=== PATIENT | female | born 1980 | race Caucasian/White ===

== ENCOUNTER 2023-05-13 19:01 | Observation (INO) | payer OTHER, SELFPAY ==
[2023-05-13] VITALS (37 sets, daily range): BP systolic 70–138; BP diastolic 0–77; PULSE 50–91; RESP 6–22; TEMP 36.4–36.9; O2SAT 92–100; BMI 51.1
--- NOTE | 2023-05-13 19:12 | ECG_ITS ---
[facility] Test Date: 2023-05-13 Pat Name: ASIF COLLIER Department: Room: - Gender: Female [employer]: : 1980 Requested By: DARIAN PERERA Order Number: [id number] Reading MD: ARIADNE MINOR Measurements Intervals [place] Rate: 84 P: 61 ID: [id number] QRS: 55 QRSD: 90 T: 35 QT: 392 QTc: 433 Interpretive Statements 1100 Sinus rhythm 4068 Nonspecific Twave abnormality 9130 borderline ECG No previous ECG available for comparison Electronically Signed On 05-14-2023 18:23:29 EDT by ARIADNE MINOR
--- NOTE | 2023-05-13 19:13 | ED.GENADUL1 ---
HPI - General Adult General Chief complaint: Allergic Reaction Stated complaint: ALLERGIC REACTION Time Seen by Provider: 05/13/23 19:12 History of Present Illness HPI narrative: patient is a 42-year-old female who presents to the emergency department with concern of possible ALLERGIC reaction. Patient was diagnosed with Covid approximately ten days ago, she developed a red rash with itching but had no other significant focal medical complaints. She was seen by her PCP several days ago as she has a medullary sponge kidney, she reported she was not feeling well any urine culture showed a urinary tract infection so Keflex was called in for her. She also received a steroid shot in the PCP office several days ago for the redness and itching rash. She states she took the 1st dose of Keflex two hours ago and while driving, she developed shortness of breath, a sensation that she was tingling all over, itching and that her face may be swelling. She is not noted to have any diffuse hives, tongue swelling or throat swelling. She states she feels nauseous. She is not concerned for . She has had no objective fevers. Related Data Home Medications Medication Instructions Recorded Confirmed amlodipine 10 mg tablet 10 mg PO DAILY 05/13/23 05/13/23 ergocalciferol (vitamin D2) 1,250 50,000 unit PO DAILY 05/13/23 05/13/23 mcg (50,000 unit) capsule propranolol 20 mg tablet 20 mg PO Q12H 05/13/23 05/13/23 Allergies Allergy/AdvReac Type Severity Reaction Status Date / Time No Known Drug Allergies Allergy Verified 05/13/23 19:17 Review of Systems ROS Constitutional Denies: fever or chills Ears, nose, mouth, and throat Denies: throat pain or neck pain Cardiovascular Denies: chest pain Respiratory Reports: shortness of breath Gastrointestinal Reports: nausea and vomiting Genitourinary Denies: painful urination Musculoskeletal Denies: back pain Integumentary/Breast Reports: rash, itching and redness Neurological Denies: headache Exam Narrative Exam Narrative: Gen.: Awake, alert, in no distress Head: Normocephalic, atraumatic ENT: Moist mucous membranes; no swelling noted of the lips or tongue; no stridor Respiratory: No respiratory distress, lungs clear bilaterally; no wheezing or rhonchi Cardio: Regular rate and rhythm Gastrointestinal: Abdomen is soft, nondistended and nontender to palpation Extremities: Moves extremities equally, no injuries noted Psych: Normal mood and affect Neuro: No focal neuro deficit Skin: Warm, dry, diffuse erythematous rash of the trunk, no urticaria noted; no vesicles or crusting Constitutional Vital Signs, click to edit/add: Last Vital Signs Temp 97.6 F 05/13/23 19:05 Pulse 54 L 05/13/23 20:28 Resp 20 05/13/23 20:28 BP 108/0 L 05/13/23 20:28 Pulse Ox 98 05/13/23 20:28 O2 Del Method Room Air 05/13/23 20:28 Course Vital Signs Vital signs: Vital Signs Temperature 97.6 F 05/13/23 19:05 Pulse Rate 53 L 05/13/23 19:05 Respiratory Rate 20 05/13/23 19:05 Blood Pressure 70/48 L 05/13/23 19:05 Pulse Oximetry 97 05/13/23 19:05 Oxygen Delivery Method Room Air 05/13/23 19:05 Temperature 97.6 F 05/13/23 19:05 Pulse Rate 54 L 05/13/23 20:28 Respiratory Rate 20 05/13/23 20:28 Blood Pressure 108/0 L 05/13/23 20:28 Pulse Oximetry 98 05/13/23 20:28 Oxygen Delivery Method Room Air 05/13/23 20:28 Medical Decision Making MDM Narrative Medical decision making narrative: on arrival to the emergency department, patient was weak, assisted to the exam cart and placed on cardiac monitoring. She was noted to be hypotensive. IV was established, two lines were placed and she was given 2 L of IV fluids with improvement of blood pressure. Labs were obtained. Patient with unremarkable EKG, normal troponin and d-dimer. Her lactic acid is elevated, blood cultures were added. 2100: Urine catheter specimen and chest x-ray are pending. case turned over to attending physician at this time for reevaluation and disposition. Medical Records Medical records reviewed: Yes I reviewed the patient's medical records Lab Data Lab results reviewed: Yes I reviewed the patient's lab results Labs: Lab Results 05/13/23 Range/Units 19:15 WBC 6.3 (4.0-11.0) 10^3/uL RBC 5.36 (4.20-5.40) 10^6/uL Hgb 15.7 (12.0-16.0) g/dL Hct 49.8 H (36.0-48.0) % MCV 92.9 (81.0-99.0) fL MCH 29.3 (26.7-34.0) pg MCHC 31.5 (29.9-35.2) g/dL RDW 14.8 (11.0-15.0) % Plt Count 453 H (150-450) 10^3/uL MPV 10.7 (9.5-13.5) fL Neut % (Auto) 39.4 L (43.0-75.0) % Lymph % (Auto) 52.2 (20.5-60.0) % [place] % (Auto) 6.2 (1.7-12.0) % Eos % (Auto) 1.3 (0.9-7.0) % Baso % (Auto) 0.0 L (0.2-2.0) % Neut # (Auto) 2.5 (1.4-6.5) 10^3/uL Lymph # (Auto) 3.3 (1.2-3.8) 10^3/uL [place] # (Auto) 0.4 (0.3-0.8) 10^3/uL Eos # (Auto) 0.1 (0.0-0.7) 10^3/uL Baso # (Auto) 0.0 (0.0-0.1) 10^3/uL Abs Immat Gran (auto) 0.06 H (0.00-0.03) 10^3/uL Imm/Tot Granulo (auto) 0.9 H (0.0-0.5) % PT 10.3 (9.0-11.6) sec INR 0.97 D-Dimer 0.33 (<=0.59) mg/L FEU Sodium 136 (136-145) mmol/L Potassium 3.2 L (3.5-5.1) mmol/L Chloride 103 (98-107) mmol/L Carbon Dioxide 24.3 (21.0-32.0) mmol/L Anion Gap 11.9 BUN 10.0 (7.0-18.0) mg/dL Creatinine 0.96 (0.55-1.02) mg/dL Est GFR ( Amer) >60 (>=60) Est GFR (Non-Af Amer) >60 (>=60) BUN/Creatinine Ratio 10.4 Glucose 144 H (74-106) mg/dL Lactate 3.4 H* (0.4-2.0) mmol/L Calcium 8.6 (8.5-10.1) mg/dL Total Bilirubin 0.3 (0.2-1.0) mg/dL AST 21 (15-37) U/L ALT 28 (14-59) U/L Alkaline Phosphatase 58 (46-116) U/L Troponin I High Sens <4.0 L (4.0-51.3) pg/mL Total Protein 7.2 (6.4-8.2) g/dL Albumin 3.4 (3.4-5.0) g/dL Globulin 3.8 g/dL Albumin/Globulin Ratio 0.9 TSH 4.686 H (0.358-3.740) uIU/mL Serum HCG, Qual Negative (NEGATIVE) Imaging Data Chest x-ray: Attestation: I have reviewed the pertinent imaging results. My impression: one view chest x-ray: No acute cardiopulmonary changes, no infiltrate, normal heart size. Imaging reviewed by attending physician ECG Data Attestation: I personally reviewed and interpreted this ECG as follows: (normal sinus rhythm at a rate of eighty-[address] elevation or ectopy. EKG reviewed by attending physician) Discharge Plan Discharge Chief Complaint: Allergic Reaction Clinical Impression: Acute hypotension Patient Disposition: Admitted as Observation Time of Disposition Decision: 20:52 Condition: Fair
[2023-05-13] MEDS: 0.9 % SODIUM CHLORIDE 1,000 ML 1000 ML IV ×2 (19:24→21:44)
[2023-05-13] MEDS: FAMOTIDINE/PF 20 MG/2 ML VIAL IV (19:27)
[2023-05-13] MEDS: METHYLPREDNISOLONE SOD SUCC PF 125 MG/2 ML VIAL IVP (19:27)
[2023-05-13] MEDS: ONDANSETRON PF 4 MG/2 ML VIAL IV ×2 (19:27→21:44)
[2023-05-13] MEDS: DIPHENHYDRAMINE HCL 50 MG/ML (1ML) VIAL 25 MG IV (19:28)
[2023-05-13 19:37] LABS: Eosinophils Absolute Auto 0.1 10^3/uL (0.0-0.7); Eosinophils Percent Auto 1.3 % (0.9-7.0); Hematocrit 49.8 % (36.0-48.0); Hemoglobin 15.7 g/dL (12.0-16.0); Immature Granulocytes Abs Auto 0.06 10^3/uL (0.00-0.03); Immature Granulocytes Pct Auto 0.9 % (0.0-0.5); Lymphocytes Absolute Auto 3.3 10^3/uL (1.2-3.8); Lymphocytes Percent Auto 52.2 % (20.5-60.0); Mean Corpuscular HGB Conc 31.5 g/dL (29.9-35.2); Mean Corpuscular Hemoglobin 29.3 pg (26.7-34.0); Mean Corpuscular Volume 92.9 fL (81.0-99.0); Mean Platelet Volume 10.7 fL (9.5-13.5); Monocytes Absolute Auto 0.4 10^3/uL (0.3-0.8); Monocytes Percent Auto 6.2 % (1.7-12.0); Neutrophils Absolute Auto 2.5 10^3/uL (1.4-6.5); Neutrophils Percent Auto 39.4 % (43.0-75.0); Platelet Count 453 10^3/uL (150-450); Red Blood Count 5.36 10^6/uL (4.20-5.40); Red Cell Distribution Width 14.8 % (11.0-15.0); White Blood Count 6.3 10^3/uL (4.0-11.0)
[2023-05-13 19:49] LABS: HCG Qualitative NEGATIVE (NEGATIVE)
[2023-05-13 19:50] LABS: D Dimer 0.33 mg/L FEU (<=0.59); INR 0.97; Prothrombin Time 10.3 sec (9.0-11.6)
[2023-05-13 19:54] LABS: Alanine Aminotransferase 28 U/L (14-59); Albumin Globulin Ratio 0.9; Albumin Level 3.4 g/dL (3.4-5.0); Alkaline Phosphatase 58 U/L (46-116); Anion Gap 11.9; Aspartate Amino Transferase 21 U/L (15-37); BUN Creatinine Ratio 10.4; Bilirubin Total 0.3 mg/dL (0.2-1.0); Calcium 8.6 mg/dL (8.5-10.1); Carbon Dioxide 24.3 mmol/L (21.0-32.0); Chloride 103 mmol/L (98-107); Estimated GFR (African America >60 (>=60); Estimated GFR (Non-African Ame >60 (>=60); Globulin 3.8 g/dL; Glucose 144 mg/dL (74-106); Potassium 3.2 mmol/L (3.5-5.1); Sodium 136 mmol/L (136-145); Total Protein 7.2 g/dL (6.4-8.2)
--- NOTE | 2023-05-13 19:57 | XR_ITS ---
The [address] [address] Patient Name: ASIF COLLIER MRN: [id number] date: 1980 Sex: F Assigned Patient Location: ED.MAIN Current Patient Location: ER Accession/Order Number: [id number] Exam Date: 05/13/2023 20:48 Report Date: 05/13/2023 21:08 At the request of: BETSY MADSEN Procedure: XR chest 1V EXAMINATION: XR chest 1V HISTORY: Shortness of breath COMPARISON: None. TECHNIQUE: Portable chest FINDINGS: The lung parenchyma is free of consolidation or infiltrate. No pneumothorax or pleural effusion. The cardiac, mediastinal and hilar contours are normal. The visualized osseous structures exhibit no gross abnormality. XR/XR chest 1V IMPRESSION: No acute cardiopulmonary abnormality. Electronically authenticated by: GRETEL GUZMAN Date: 05/13/2023 21:08
[2023-05-13 20:00] LABS: Thyroid Stimulating Hormone 4.686 uIU/mL (0.358-3.740); Troponin I High Sensitivity <4.0 pg/mL (4.0-51.3)
[2023-05-13 20:05] LABS: Lactate/Lactic Acid 3.4 mmol/L (0.4-2.0)
--- NOTE | 2023-05-13 20:29 | PC.NURSE ---
193/ Pulses weak and had to be doppled.
[2023-05-13 21:54] LABS: Bilirubin Urine NEGATIVE (NEGATIVE); Blood Urine TRACE-I (NEGATIVE); Clarity Urine CLEAR (CLEAR); Color Urine YELLOW (YELLOW); Glucose Urine UA NEGATIVE (NEGATIVE); Ketones Urine TRACE mg/dL (NEGATIVE); Leukocyte Esterase Urine NEGATIVE (NEGATIVE); Nitrite Urine NEGATIVE (NEGATIVE); Protein Urine 100 mg/dL (NEG/TRACE); Specific Gravity Urine 1.025 (1.005-1.025); Urobilinogen Urine 0.2 EU/dL (0.2-1.0); pH Urine 6.5 (5.0-9.0)
[2023-05-13 21:55] LABS: Urine Microscopic Indicated YES
[2023-05-13 22:03] LABS: Bacteria Urine LARGE #/HPF (NONE SEEN); Cast Seen? SEEN #/LPF (NONE SEEN); Crystals Seen? None Seen #/HPF (None Seen); Fine Granular Casts Urine RARE; Hyaline Casts Urine RARE; Mucus Urine LARGE (NONE SEEN); RBC Urine 0-2 #/HPF (0-2); Squamous Epithelial Cell Urine MANY #/LPF (NONE/RARE)
[2023-05-13 22:04] LABS: Urine Culture Indicated YES
[2023-05-13 22:59] LABS: Lactate/Lactic Acid 2.4 mmol/L (0.4-2.0)
[2023-05-14 00:03] VITALS: BP 127/80; PULSE 61; RESP 16; TEMP 36.9; O2SAT 97; BMI 51.8
--- NOTE | 2023-05-14 01:26 | W.PM.TELEPN ---
Progress Note: Subjective Subjective Interval history: CC; nursing couple episode, chest tightness HPI: This is a very pleasant 42-year-old female who presents with above complaints. Patient stated that she recently suffered from COVID-19 infection. She has been recuperating now. She saw her primary care physician because of some symptoms of urinary tract infection. Urinalysis confirmed UTI. Patient stating that she had urinary tract infection frequently before. Patient was started on empiric antibiotic (Keflex). After taking the first dose, while driving, patient started to experience chest tightness, dizziness, and eventually vomited and passed out. In the emergency room patient was diagnosed with allergic reaction to the antibiotic. She maintain normal pulse ox and blood pressure. Patient received Benadryl and Pepcid with a good response. Currently no symptoms. Admitted for observation. Exam Narrative Exam Narrative: ROS: 1.General: no fever, chills, not in distress 2.HEENT: no ROYAL, no blurry vision, no swallow problems, no nasal congestion, no sore throat 3.Pulmonary: See above 4.CVS: no CP, no palpitations, no MCMAHAN, no SOB, no intermittent claudication 5.GI: no nausea, vomiting or diarrhea, no abdominal pain, no constipation, no hematemesis or hematochezia 6.: no renal colic, no hematuria, urinary frequency or urgency 7.Extremities: no edema 8.Neurological: no dizziness, vertigo, double or blurry vision, no no focal weakness, no paresthesia, no swallow or speech problems 9.Musculosceletal: no joint pains, no joint swelling, no back pain 10.Dermatological: no skin rashes, no lesions, no pruritus 11.Hematological: no bleeding, no hx/o clots 12.Endocrinological: no heat/cold intolerance, no hx/o diabetes 13.Psychiatric: no suicidal or homicidal thoughts Physical Exam: Not in distress, pleasant, lucid, cooperative, obese Head - atraumatic, eyes - pupils equal, round, reactive to light, extra ocular movement intact, MMM Neck - supple, thyroid not enlarged, LN not palpated Lungs - clear to auscultation, no dullness on percussion CVS - heart sounds S1, S2, no additional murmurs gallop, regular rate and rhythm Gastrointestinal?abdomen is soft, non-tender, non-distended, no organomegaly, positive bowel sounds Extremities no clubbing, cyanosis or edema Neurological?cranial nerve II?XII grossly intact, no meningeal signs, no cerebellar signs, no sensory deficit Musculoskeletal - joints, no effusions, ROM preserved Dermatological - the skin dry, warm, no rashes Psychiatric?patient is AAO X3, patient has normal affect Constitutional Vital Signs, click to edit/add: Last Vital Signs Temp 98.5 F 05/14/23 00:03 Pulse 61 05/14/23 00:03 Resp 16 05/14/23 00:03 BP 127/80 05/14/23 00:03 Pulse Ox 97 05/14/23 00:03 O2 Del Method Room Air 05/14/23 00:03 Progress Note: Objective Labs Labs: Short CBC 05/13/23 Range/Units 19:15 WBC 6.3 (4.0-11.0) 10^3/uL Hgb 15.7 (12.0-16.0) g/dL Hct 49.8 H (36.0-48.0) % Plt Count 453 H (150-450) 10^3/uL BMP 05/13/23 19:15 Sodium 136 Potassium 3.2 L Chloride 103 Carbon Dioxide 24.3 BUN 10.0 Creatinine 0.96 Glucose 144 H Calcium 8.6 Liver Function 05/13/23 Range/Units 19:15 Total Bilirubin 0.3 (0.2-1.0) mg/dL AST 21 (15-37) U/L ALT 28 (14-59) U/L Alkaline Phosphatase 58 (46-116) U/L Albumin 3.4 (3.4-5.0) g/dL Urine 05/13/23 Range/Units 21:40 Urine Color Yellow (YELLOW) Urine Clarity Clear (CLEAR) Urine pH 6.5 (5.0-9.0) Ur Specific [place] 1.025 (1.005-1.025) Urine Protein 100 A (NEG/TRACE) mg/dL Urine Glucose (UA) Negative (NEGATIVE) mg/dL Progress Note: A&P Assessment and Plan (1) Allergic reaction: Assessment and Plan: Allergic reaction to Keflex?seems to be resolved Continue monitoring on medical floor I am going to have Benadryl available as needed If no new symptoms?possibly can be released home in the morning (2) HTN (hypertension): Assessment and Plan: Continue home dose of Norvasc if medically appropriate, adjust as needed Plan END: As the provider for the telehealth service, I attest that I introduced myself to the patient, provided my credentials, disclosed by location and determined that based on a review of the patient's chart and discussion with members of the patient's treatment team, telemedicine via real-time, 2 way, and interactive audio and video platform is an appropriate and effective means of providing the service. ?The patient and I mutually agree this visit is appropriate for telemedicine. ?[place] ?The encounter took approximately 35 minutes. ?The nurse was present during the entire time and I was able to move the stethoscope in appropriate directions. ?The patient was evaluated at the Hospital ? Portions of this note may be dictated using [email or web address] voice recognition software. Variances in spelling and vocabulary are possible and unintentional. Not all errors may be caught and/or corrected. Please notify the author if any discrepancies are noted and/or if the meaning of any statement is unclear.? ? Patient verbally consented for treatment via video visit with patient currently located at the [facility] and provider located in [place]. Telemedicine Attestation Telemedicine Attestation I conducted this encounter from [place] via secure live, [id number] video conference with the patient, located at [facility] with [allergic reaction]. Prior to the interview, the risks and benefits of telemedicine were discussed with the patient and verbal consent was obtained.
[2023-05-14 04:39] LABS: Basophils Percent Auto 0.3 % (0.2-2.0); Hematocrit 40.7 % (36.0-48.0); Hemoglobin 12.7 g/dL (12.0-16.0); Immature Granulocytes Abs Auto 0.07 10^3/uL (0.00-0.03); Immature Granulocytes Pct Auto 0.5 % (0.0-0.5); Lymphocytes Absolute Auto 1.2 10^3/uL (1.2-3.8); Lymphocytes Percent Auto 8.4 % (20.5-60.0); Mean Corpuscular HGB Conc 31.2 g/dL (29.9-35.2); Mean Corpuscular Hemoglobin 29.3 pg (26.7-34.0); Mean Corpuscular Volume 93.8 fL (81.0-99.0); Mean Platelet Volume 10.8 fL (9.5-13.5); Monocytes Absolute Auto 0.1 10^3/uL (0.3-0.8); Monocytes Percent Auto 0.7 % (1.7-12.0); Neutrophils Absolute Auto 12.6 10^3/uL (1.4-6.5); Neutrophils Percent Auto 90.1 % (43.0-75.0); Platelet Count 321 10^3/uL (150-450); Red Blood Count 4.34 10^6/uL (4.20-5.40); Red Cell Distribution Width 14.8 % (11.0-15.0)
[2023-05-14 04:45] LABS: BUN Creatinine Ratio 8.8; Calcium 8.1 mg/dL (8.5-10.1); Carbon Dioxide 24.2 mmol/L (21.0-32.0); Chloride 105 mmol/L (98-107); Estimated GFR (African America >60 (>=60); Estimated GFR (Non-African Ame 53 (>=60); Glucose 188 mg/dL (74-106); Potassium 4.2 mmol/L (3.5-5.1); Sodium 137 mmol/L (136-145)
[2023-05-14 04:48] VITALS: BP 135/77; PULSE 69; RESP 16; TEMP 36.7; O2SAT 96
[2023-05-14 09:19] VITALS: BP 129/73
[2023-05-14] MEDS: AMLODIPINE BESYLATE 5 MG TABLET 10 MG PO (09:19)
[2023-05-14] MEDS: PROPRANOLOL HCL 20 MG TABLET PO (09:19)
[2023-05-14] MEDS: CLINDAMYCIN HCL 150 MG CAPSULE 300 MG PO (13:01)
--- NOTE | 2023-05-14 14:44 | PM.HP ---
H&P: HPI History of Present Illness Chief complaint: Allergic reaction Narrative: 42 y/o male to ER with an allergic reaction. Patient seen by PCP few days prior and diagnosed with UTI. Given keflex and took first dose. Few hours later developed SOB. [place] numbness and tingling in face. Developed itching all over and to ER. In ER BP low. Given solu-medrol and IV fluids. Given pepcid and benadryl and admitted for monitoring. Patient doing well this am. No furhter symptoms. No SOB or cough. No rash or itching. Review of Systems ROS Constitutional Denies: fever, chills or night sweats Cardiovascular Denies: chest pain, palpitations or edema Respiratory Reports: shortness of breath; Denies: cough or wheezing Gastrointestinal Denies: abdominal pain, nausea, vomiting or diarrhea Genitourinary Denies: painful urination Integumentary/Breast Reports: itching PFSH PFSH Medical History (Updated 05/14/23 @ 09:38 by Sumit Perez MD) Allergic reaction ?T78.40XA - Allergy, unspecified, initial encounter (ICD-10) Irregular heart rate ?I49.9 - Cardiac arrhythmia, unspecified (ICD-10) Torn ACL (anterior cruciate ligament) ?S83.519A - Sprain of anterior cruciate ligament of unspecified knee, initial encounter (ICD-10) Family History (Updated 05/14/23 @ 00:29 by Gabi Jones) Grandmother Family history of COPD (chronic obstructive pulmonary disease) Family history of cancer Family history of diabetes mellitus Aunt Family history of cancer Grandfather Family history of stroke Social History (Updated 05/14/23 @ 00:31 by Gabi Jones) Within the past year, how often did you have a drink containing alcohol: monthly or less Within the past year, how often did you have six or more drinks on one occasion: never Smoking status: Former smoker Second hand tobacco smoke exposure: No Non-prescribed substance use: denies use 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 Known occupational exposures/hazards: No Highest level of school completed/degree received: Bachelor's degree Do you want help with school or training: No Are you now , , , , never or living with a partner: In a typical week, how many times do you talk on the telephone with family, friends, or neighbors: 3 or more times per week How often do you get together with friends or relatives: 3 or more times per week How often do you attend samaritan or rastafarian services: 1-3 times per year Do you belong to any clubs or organizations such as samaritan groups unions, fraternal or athletic groups, or school groups: no Total score: 2 Score interpretation: A score of greater than or equal to 2 indicates the lowest level of social isolation. Little interest or pleasure in doing things: not at all Feeling down, depressed, or hopeless: not at all Feel stressed/tense/nervous/anxious/difficulty sleeping: very much Due to disability, difficulty making decisions: No Do you think of yourself as: straight/heterosexual Gender Identity: female Meds Home Medications and Allergies Home Medications Medication Instructions Recorded Confirmed Type amlodipine 10 mg tablet 10 mg PO DAILY 05/13/23 05/13/23 History ergocalciferol (vitamin D2) 1,250 50,000 unit PO .WEEKLY 05/13/23 05/14/23 History mcg (50,000 unit) capsule propranolol 20 mg tablet 20 mg PO Q12H 05/13/23 05/13/23 History clindamycin HCl 300 mg capsule 300 mg PO Q6H 10 days #40 caps 05/14/23 Rx Allergies Allergy/AdvReac Type Severity Reaction Status Date / Time No Known Drug Allergies Allergy Verified 05/13/23 19:17 Exam Constitutional Vital Signs, click to edit/add: Last Vital Signs Temp 98.0 F 05/14/23 04:48 Pulse 69 05/14/23 04:48 Resp 16 05/14/23 04:48 BP 129/73 05/14/23 09:19 Pulse Ox 96 05/14/23 04:48 O2 Del Method Room Air 05/14/23 04:48 Documenting provider has reviewed patient's vital signs: yes Common normals: no apparent distress, oriented x3 and alert HENMT Common normals: normocephalic Eye Common normals: PERRL and EOMs intact bilaterally Respiratory Common normals: normal respiratory effort and clear to auscultation bilaterally Cardio Common normals: regular rate, regular rhythm, no gallops, no murmurs and no rub GI Common normals: Normal to inspection, nondistended, normoactive bowel sounds present and non-tender Extremity Common normals: no pedal edema Results Labs Labs: Short CBC 05/13/23 05/14/23 Range/Units 19:15 04:22 WBC 6.3 14.0 H (4.0-11.0) 10^3/uL Hgb 15.7 12.7 (12.0-16.0) g/dL Hct 49.8 H 40.7 (36.0-48.0) % Plt Count 453 H 321 (150-450) 10^3/uL BMP 05/13/23 05/14/23 19:15 04:22 Sodium 136 137 Potassium 3.2 L 4.2 Chloride 103 105 Carbon Dioxide 24.3 24.2 BUN 10.0 10.0 Creatinine 0.96 1.13 H Glucose 144 H 188 H Calcium 8.6 8.1 L Liver Function 05/13/23 Range/Units 19:15 Total Bilirubin 0.3 (0.2-1.0) mg/dL AST 21 (15-37) U/L ALT 28 (14-59) U/L Alkaline Phosphatase 58 (46-116) U/L Albumin 3.4 (3.4-5.0) g/dL Urine 05/13/23 Range/Units 21:40 Urine Color Yellow (YELLOW) Urine Clarity Clear (CLEAR) Urine pH 6.5 (5.0-9.0) Ur Specific [place] 1.025 (1.005-1.025) Urine Protein 100 A (NEG/TRACE) mg/dL Urine Glucose (UA) Negative (NEGATIVE) mg/dL Assessment and Plan Assessment and Plan (1) HTN (hypertension): (2) Allergic reaction due to antibacterial drug: (3) Acute hypotension: (4) UTI (urinary tract infection): (5) Medullary sponge kidney: Plan Developed reaction to keflex but improved with treatment. No further symptoms and doing well. Urine culture from PCP showed UTI with 2 different bacteria. Start clindamycin due to sensitivity and first dose given in hospital. Tolerated well and discharge home. Take clindamycin x 10 days. Resume home medication as directed.
--- NOTE | 2023-05-16 15:25 | CM.DCFOLLOWU ---
Person spoke with:patient How are you feeling? really well How is your pain? no pain Did you understand your discharge instructions? yes Do you have any questions about your discharge instructions? no Were you given any prescriptions at discharge? yes Were you able to get your prescriptions filled? yes Do you understand how to take your medications as ordered? yes Do you have any questions about your follow up appointment and do you plan to keep your follow up appointment? no questions, yes keeping follow up Is there anything else that you would like to discuss? no Questions/Comments/Concerns/Other:
== END 2023-05-14 13:40 | disposition home or self-care (01) ==
LOC: ER 22:18 → MS 05-14 01:21
PROVIDERS: Physician Assistant; Admitting Provider Internal Medicine; Emergency Provider Emergency Medicine; PCP Family Medicine; Visit Provider Family Medicine
DX: I95.9 Hypotension, unspecified (principal); R20.0 Anesthesia of skin; L29.9 Pruritus, unspecified; R06.02 Shortness of breath; I10 Essential (primary) hypertension; N39.0 Urinary tract infection, site not specified; Q61.5 Medullary cystic kidney; T36.1X5A Adverse effect of cephalosporins and other beta-lactam antibiotics, initial encounter; Z87.891 Personal history of nicotine dependence; Z79.899 Other long term (current) drug therapy; Z86.16 Personal history of COVID-19
CPT/HCPCS: 36415; 71045; 80048; 80053; 81001; 83605; 84443; 84484; 84703; 85025; 85378; 85610; 87040; 87086; 93005; 96361; 96374; 96375; 96376; 99285; G0378; J2930; Q3014

== ENCOUNTER 2023-10-10 18:35 | Emergency (ER) | payer OTHER, SELFPAY ==
[2023-10-10] VITALS (14 sets, daily range): BP systolic 102–125; BP diastolic 72–82; PULSE 58–104; RESP 10–23; TEMP 36.6; O2SAT 93–100; BMI 51.8
--- NOTE | 2023-10-10 18:42 | ECG_ITS ---
[facility] Test Date: 2023-10-10 Pat Name: ASIF COLLIER Department: Room: - Gender: Female [employer]: : 1980 Requested By: DARIAN PERERA Order Number: [id number] Reading MD: JAIRO LONGORIA Measurements Intervals [place] Rate: 86 P: 56 TX: 164 QRS: 41 QRSD: 90 T: -30 QT: 366 QTc: 409 Interpretive Statements 1100 Sinus rhythm 4068 Nonspecific Twave abnormality 9130 borderline ECG Compared to ECG 05/13/2023 19:14:54 No significant changes Electronically Signed On 10-12-2023 6:06:20 EST by JAIRO LONGORIA
--- NOTE | 2023-10-10 18:43 | ED.ALLEREA1 ---
HPI - Allergic Reaction General Chief complaint: Allergic Reaction Stated complaint: Allergic Reaction Time Seen by Provider: 10/10/23 18:42 History of Present Illness HPI narrative: Patient is a 43-year-old female who presents to the emergency department for suspected anaphylactic reaction. She states that she developed anaphylaxis to Keflex last year and was given an EpiPen. She states that she went to the pharmacy to supervisor opening and picking augmentin for sinus infection and took the first dose of Augmentin tonight, Shortly after she developed vomiting, diffuse urticaria and sensation of swelling and itching. She is noted to have swelling of the ears bilaterally. She used an EpiPen that was leftover from her previous anaphylactic reaction last year with improvement. She is not concerned for . She does not feel short of breath at this time. Related Data Home Medications Medication Instructions Recorded Confirmed amlodipine 10 mg tablet 10 mg PO DAILY 05/13/23 05/13/23 ergocalciferol (vitamin D2) 1,250 50,000 unit PO .WEEKLY 05/13/23 05/14/23 mcg (50,000 unit) capsule propranolol 20 mg tablet 20 mg PO Q12H 05/13/23 05/13/23 Previous Rx's Medication Instructions Recorded clindamycin HCl 300 mg capsule 300 mg PO Q6H 10 days #40 caps 05/14/23 clindamycin HCl 150 mg capsule 300 mg (2 x 150 mg) PO Q6H 10 days 10/10/23 #80 caps epinephrine 0.3 mg/0.3 mL 0.3 mg (0.3 mL) IM ONCE PRN 10/10/23 injection, auto-injector (EpiPen) anaphylaxis #2 ea famotidine 20 mg tablet (Pepcid) 20 mg PO BID #10 tabs 10/10/23 hydroxyzine HCl 25 mg tablet 25 mg PO Q6H PRN itching #20 tabs 10/10/23 methylprednisolone 4 mg tablets in See Rx Instructions .Route 10/10/23 a dose pack (Medrol (Srini)) .COMPLEX #21 ea ondansetron 4 mg disintegrating 4 mg PO Q6H PRN nausea and 10/10/23 tablet vomiting #12 tabs Allergies Allergy/AdvReac Type Severity Reaction Status Date / Time amoxicillin [From Augmentin] Allergy Severe Verified 10/10/23 18:49 cephalexin [From Keflex] Allergy Severe Verified 10/10/23 18:49 clavulanic acid Allergy Severe Verified 10/10/23 18:49 [From Augmentin] Review of Systems ROS Constitutional Denies: fever or chills Ears, nose, mouth, and throat Denies: throat pain or nasal congestion Cardiovascular Denies: chest pain Respiratory Denies: shortness of breath or cough Gastrointestinal Reports: nausea and vomiting Musculoskeletal Denies: back pain Integumentary/Breast Denies: rash Neurological Denies: headache Hematologic/Lymphatic Denies: easy bruising or easy bleeding [facility] Medical History (Updated 10/10/23 @ 20:09 by SAI Carlson) Medullary sponge kidney ?Q61.5 - Medullary cystic kidney (ICD-10) Torn ACL (anterior cruciate ligament) ?S83.519A - Sprain of anterior cruciate ligament of unspecified knee, initial encounter (ICD-10) Irregular heart rate ?I49.9 - Cardiac arrhythmia, unspecified (ICD-10) HTN (hypertension) ?I10 - Essential (primary) hypertension (ICD-10) Allergic reaction ?T78.40XA - Allergy, unspecified, initial encounter (ICD-10) Family History (Updated 05/14/23 @ 00:29 by Gabi Jones) Grandmother Family history of COPD (chronic obstructive pulmonary disease) Family history of cancer Family history of diabetes mellitus Aunt Family history of cancer Grandfather Family history of stroke Social History Within the past year, how often did you have a drink containing alcohol: monthly or less Within the past year, how often did you have six or more drinks on one occasion: never Smoking status: Former smoker Second hand tobacco smoke exposure: No Non-prescribed substance use: denies use 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 Known occupational exposures/hazards: No Highest level of school completed/degree received: Bachelor's degree Do you want help with school or training: No Are you now , , , , never or living with a partner: In a typical week, how many times do you talk on the telephone with family, friends, or neighbors: 3 or more times per week How often do you get together with friends or relatives: 3 or more times per week How often do you attend mormonism or church services: 1-3 times per year Do you belong to any clubs or organizations such as mormonism groups unions, fraternal or athletic groups, or school groups: no Total score: 2 Score interpretation: A score of greater than or equal to 2 indicates the lowest level of social isolation. Little interest or pleasure in doing things: not at all Feeling down, depressed, or hopeless: not at all Feel stressed/tense/nervous/anxious/difficulty sleeping: very much Due to disability, difficulty making decisions: No Do you think of yourself as: straight/heterosexual Gender Identity: female Exam Narrative Exam Narrative: Gen.: Awake, alert, in no distress Head: Normocephalic, atraumatic ENT: Moist mucous membranes; Bilateral ears are swollen, diffuse minimal edema noted of the forehead. No visible swelling of the tongue, lips. Airway is widely open and patent. Patient with clear speech. Respiratory: No respiratory distress, lungs clear bilaterally; No wheezing or rhonchi Cardio: Regular rate and rhythm Extremities: Moves extremities equally, no Pedal edema Psych: Normal mood and affect Neuro: No focal neuro deficit Skin: Warm, dry, intact; Diffuse fine urticaria noted of the upper extremities. No mucous membrane involvement. No petechia or purpura. No peeling or sloughing of the skin MDM - Allergic Reaction MDM Narrative Medical decision making narrative: Patient was observed in the emergency department for almost 2 hours, she had no evidence of airway compromise or worsening symptoms. She treated with an EpiPen prior to arrival, her symptoms continue to improve in the ER. She was given IV fluids, Zofran, Solu-Medrol, Benadryl, Pepcid. On my reevaluation after an hour, she feels as though the itching and peripheral rash have improved. She continues to have swelling of the earlobes. She was instructed to stop the Augmentin, she will be placed on clindamycin, Medrol Dosepak, Pepcid, Atarax for home. Follow-up with PCP and return to the ER if symptoms change or worsen. Medical Records Attestation: I reviewed the patient's medical records. Discharge Plan Discharge Chief Complaint: Allergic Reaction Clinical Impression: Allergic reaction Patient Disposition: Home, Self-Care Time of Disposition Decision: 20:08 Condition: Good Prescriptions / Home Meds: New clindamycin HCl 150 mg capsule 300 mg PO Q6H 10 Days Qty: 80 0RF hydroxyzine HCl 25 mg tablet 25 mg PO Q6H PRN (Reason: itching) Qty: 20 0RF methylprednisolone [Medrol (Srini)] 4 mg tablets,dose pack See Rx Instructions .ROUTE .COMPLEX Qty: 21 0RF Rx Instructions: Taper as directed famotidine [Pepcid] 20 mg tablet 20 mg PO BID Qty: 10 0RF ondansetron 4 mg tablet,disintegrating 4 mg PO Q6H PRN (Reason: nausea and vomiting) Qty: 12 0RF epinephrine [EpiPen] 0.3 mg/0.3 mL auto-injector 0.3 mg IM ONCE PRN (Reason: anaphylaxis) Qty: 2 0RF No Action amlodipine 10 mg tablet 10 mg PO DAILY ergocalciferol (vitamin D2) 1,250 mcg (50,000 unit) capsule 50,000 unit PO .WEEKLY propranolol 20 mg tablet 20 mg PO Q12H clindamycin HCl 300 mg capsule 300 mg PO Q6H 10 Days Qty: 40 0RF Instructions: Antibiotic Medication Allergy (ED) Additional Instructions: Please let your doctor's office know that you have a severe reaction to penicillins and cephalosporins Referrals: DARIAN PERERA [Primary Care Provider] - 1 week Discharge Date/Time: 10/10/23 20:45 Stand Alone Forms: Portal Instructions
--- NOTE | 2023-10-10 19:04 | PC.NURSE ---
no wheezing upon arrival.
[2023-10-10] MEDS: 0.9 % SODIUM CHLORIDE 1,000 ML 250 ML IV (19:12)
[2023-10-10] MEDS: DIPHENHYDRAMINE HCL 50 MG/ML (1ML) VIAL 25 MG IV (19:12)
[2023-10-10] MEDS: ONDANSETRON PF 4 MG/2 ML VIAL IV (19:13)
[2023-10-10] MEDS: METHYLPREDNISOLONE SOD SUCC PF 125 MG/2 ML VIAL IVP (19:13)
[2023-10-10] MEDS: FAMOTIDINE/PF 20 MG/2 ML VIAL IV (19:13)
[2023-10-10] MEDS: ALBUTEROL SULFATE 2.5 MG/3 ML VIAL NEB IH (19:35)
== END 2023-10-10 20:45 | disposition home or self-care (01) ==
PROVIDERS: Emergency Provider Internal Medicine; PCP Family Medicine
DX: L27.0 Generalized skin eruption due to drugs and medicaments taken internally (principal); R22.0 Localized swelling, mass and lump, head; T36.0X5A Adverse effect of penicillins, initial encounter; Q61.5 Medullary cystic kidney; I10 Essential (primary) hypertension; Z87.891 Personal history of nicotine dependence
CPT/HCPCS: 93005; 94640; 96374; 96375; 99284; J2930

== ENCOUNTER 2024-02-27 08:29 | Emergency (ER) | payer OTHER, SELFPAY ==
[2024-02-27 08:34] VITALS: BP 133/68; PULSE 58; TEMP 37.2; O2SAT 100; BMI 50.1
--- NOTE | 2024-02-27 09:01 | CT_ITS ---
The [address] [address] Patient Name: ASIF COLLIER MRN: [id number] date: 1980 Sex: F Assigned Patient Location: ER Current Patient Location: Accession/Order Number: [id number] Exam Date: 02/27/2024 09:27 Report Date: 02/27/2024 10:13 At the request of: ALESSANDRO MCRAE Procedure: CT lumbar spine wo con EXAMINATION: CT lumbar spine wo con HISTORY: sciatic pain please extend to sacral level COMPARISON: No relevant comparison available. TECHNIQUE: Axial, Coronal, and Sagittal images were created without IV contrast. Dose reduction techniques were achieved by using automated exposure control and/or adjustment of mA and/or kV according to patient size and/or use of iterative reconstruction technique. FINDINGS: VERTEBRAL BODIES: Mild grade 1 anterior listhesis of L4 on 5. No fracture or bone lesion. FACET JOINTS: Moderate degenerative facet arthropathy L4-5. Mild at L5-S1. No facet joint disruption. DISCS: L4-5 moderate-marked central canal and bilateral foramen narrowing. Moderate diffuse disc bulging with mild disc at reduction. Degenerative facet arthropathy and bone encroachment on the neural foramen. L5-S1 CENTRAL CANAL: No evidence of hemorrhage. PARASPINAL AREA: Small nonobstructing stones within bilateral kidneys. IUD within uterine endometrial cavity. CT/CT lumbar spine wo con IMPRESSION: 1. Moderate-marked central canal and bilateral foramen narrowing at L4-5 secondary to degenerative disc disease and facet arthropathy. Mild to moderate findings at L5-S1. 2. Bilateral nonobstructing nephrolithiasis. Electronically authenticated by: YAYA HERNANDEZ Date: 02/27/2024 10:13
--- NOTE | 2024-02-27 09:01 | XR_ITS ---
The [address] [address] Patient Name: ASIF COLLIER MRN: [id number] date: 1980 Sex: F Assigned Patient Location: ED.MAIN Current Patient Location: ER Accession/Order Number: [id number] Exam Date: 02/27/2024 09:27 Report Date: 02/27/2024 10:14 At the request of: ALESSANDRO MCRAE Procedure: XR sacrum coccyx min 2V PROCEDURE: XR sacrum coccyx min 2V COMPARISON: None. HISTORY: pain FINDINGS: SACRUM: No fracture, disruption of the sacral ala line, or cortical irregularity. COCCYX: No fracture or suspicious alignment. SOFT TISSUES: No widening of the sacroiliac joints. No radiopaque foreign body. OTHER: IUD projecting over midline pelvis. XR/XR sacrum coccyx min 2V IMPRESSION: 1. No acute bone abnormality or significant degenerative changes. Electronically authenticated by: YAYA HERNANDEZ Date: 02/27/2024 10:14
[2024-02-27] MEDS: ORPHENADRINE 60 MG/ 2 ML VIAL IM (09:21)
[2024-02-27] MEDS: KETOROLAC TROMETHAMINE 60 MG/2 ML VIAL IM (09:22)
--- NOTE | 2024-02-27 10:00 | ED.BACK1 ---
HPI HPI - Back Pain/Injury General Chief Complaint: Back Pain/Injury Stated Complaint: LOWER BACK PAIN Time Seen by Provider: 02/27/24 08:40 Source: patient Mode of arrival: walk-in Limitations: no limitations History of Present Illness HPI Narrative: The patient is coming to the ER with a lower back pain radiating to both legs mostly the left although initially it was up to the right, patient have history of chronic back pain with radiation of the pain to the right leg mostly at the knee level, the patient mentioned that almost 3 days ago she started having pain more in the lower back radiating down to the left side, she mentioned that she had no weakness no numbness no tingling and the pain goes down to her left knee level almost but there is no incontinence of urine or stool. The patient mentioned that sometimes she feels unstable when she is walking because of the pain, she also mentioned that at that she was planning some baby shower when this pain started the next day but she did not carry anything heavy She tried some ibuprofen but no improvement Related Data Home Medications ?Medication ?Instructions ?Recorded ?Confirmed amlodipine 10 mg tablet 10 mg PO DAILY 05/13/23 05/13/23 ergocalciferol (vitamin D2) 1,250 50,000 unit PO .WEEKLY 05/13/23 05/14/23 mcg (50,000 unit) capsule propranolol 20 mg tablet 20 mg PO Q12H 05/13/23 05/13/23 Previous Rx's ?Medication ?Instructions ?Recorded clindamycin HCl 300 mg capsule 300 mg PO Q6H 10 days #40 caps 05/14/23 clindamycin HCl 150 mg capsule 300 mg (2 x 150 mg) PO Q6H 10 days 10/10/23 #80 caps epinephrine 0.3 mg/0.3 mL 0.3 mg (0.3 mL) IM ONCE PRN 10/10/23 injection, auto-injector (EpiPen) anaphylaxis #2 ea famotidine 20 mg tablet (Pepcid) 20 mg PO BID #10 tabs 10/10/23 hydroxyzine HCl 25 mg tablet 25 mg PO Q6H PRN itching #20 tabs 10/10/23 methylprednisolone 4 mg tablets in See Rx Instructions .Route 10/10/23 a dose pack (Medrol (Srini)) .COMPLEX #21 ea ondansetron 4 mg disintegrating 4 mg PO Q6H PRN nausea and 10/10/23 tablet vomiting #12 tabs cyclobenzaprine 10 mg tablet 10 mg PO BID PRN muscle spasm #14 02/27/24 tabs diclofenac sodium 75 mg 75 mg PO BID PRN pain #14 tabs 02/27/24 tablet,delayed release famotidine 20 mg tablet (Pepcid) 20 mg PO BID #10 tabs 02/27/24 prednisone 50 mg tablet 50 mg PO DAILY 5 days #5 tabs 02/27/24 Allergies Allergy/AdvReac Type Severity Reaction Status Date / Time amoxicillin [From Augmentin] Allergy Severe Anaphylaxis Verified 02/27/24 08:34 cephalexin [From Keflex] Allergy Severe Anaphylaxis Verified 02/27/24 08:34 clavulanic acid Allergy Severe Anaphylaxis Verified 02/27/24 08:34 [From Augmentin] Opioid HPI Opioid Management Most Recent Opioid Data: Last Pain Scale 4 02/27/24 10:55 Last ED Pain Assessment 02/27/24 10:55 Last MAR Pain Assessment 02/27/24 09:22 Review of Systems ROS Status of ROS 10 or more systems reviewed and unremarkable except as noted in history and below [facility] Medical History (Updated 02/27/24 @ 10:35 by Irma Keith MD) Medullary sponge kidney ?Q61.5 - Medullary cystic kidney (ICD-10) Torn ACL (anterior cruciate ligament) ?S83.519A - Sprain of anterior cruciate ligament of unspecified knee, initial encounter (ICD-10) Irregular heart rate ?I49.9 - Cardiac arrhythmia, unspecified (ICD-10) HTN (hypertension) ?I10 - Essential (primary) hypertension (ICD-10) Allergic reaction ?T78.40XA - Allergy, unspecified, initial encounter (ICD-10) Family History (Updated 05/14/23 @ 00:29 by Gabi Jones) Grandmother Family history of COPD (chronic obstructive pulmonary disease) Family history of cancer Family history of diabetes mellitus Aunt Family history of cancer Grandfather Family history of stroke Social History Within the past year, how often did you have a drink containing alcohol: monthly or less Within the past year, how often did you have six or more drinks on one occasion: never Smoking status: Former smoker Second hand tobacco smoke exposure: No Non-prescribed substance use: denies use 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 Known occupational exposures/hazards: No Highest level of school completed/degree received: Bachelor's degree Do you want help with school or training: No Are you now , , , , never or living with a partner: In a typical week, how many times do you talk on the telephone with family, friends, or neighbors: 3 or more times per week How often do you get together with friends or relatives: 3 or more times per week How often do you attend confucianism or restorationist services: 1-3 times per year Do you belong to any clubs or organizations such as confucianism groups unions, fraternal or athletic groups, or school groups: no Total score: 2 Score interpretation: A score of greater than or equal to 2 indicates the lowest level of social isolation. Little interest or pleasure in doing things: not at all Feeling down, depressed, or hopeless: not at all Feel stressed/tense/nervous/anxious/difficulty sleeping: very much Due to disability, difficulty making decisions: No Do you think of yourself as: straight/heterosexual Gender Identity: female Exam Narrative Exam Narrative: Nurses notes and vital signs reviewed and patient is not hypoxic. General: Well-appearing and in no apparent distress. Skin: Warm, dry, no pallor noted. No rash. Head: Normocephalic, atraumatic. Neck: Supple, non-tender. Eye: Pupils are equal, round and EOMI. No scleral icterus. Ears, Nose, Mouth, and Throat: TM are clear, no nasal mucosal hypertrophy. Oral mucosa is moist, no posterior oropharynx erythema, uvula is mid-line Cardiovascular: Regular Rate and Rhythm without murmur, gallop or rub. Respiratory: No accessory muscle use or respiratory distress. Lungs are clear to auscultation, no wheezing, rales or rhonchi Chest Wall: no tenderness Back: There is tenderness upon palpation of the sacral mid level as well as lower lumbar, paraspinal muscle tenderness both sides as well in the sacral level Musculoskeletal: normal ROM, no calf or popliteal tenderness, no lower extremity edema/swelling GI: Abdomen is soft, non-distended. Normal bowel sounds. No masses appreciated. No tenderness to palpation. No rebound, guarding, or rigidity noted. Neurological: A&O x4. No cranial nerve dysfunction observed. No truncal ataxia. Moves all extremities. Sensation intact. Psychiatric: Cooperative and interactive. Normal mood and affect. Constitutional Vital Signs, click to edit/add: Last Vital Signs Temp 98.9 F 02/27/24 08:34 Pulse 58 L 02/27/24 08:34 Resp 20 02/27/24 08:34 BP 133/68 02/27/24 08:34 Pulse Ox 100 02/27/24 08:34 O2 Del Method Room Air 02/27/24 08:34 Course Vital Signs Vital signs: Vital Signs Temperature 98.9 F 02/27/24 08:34 Pulse Rate 58 L 02/27/24 08:34 Respiratory Rate 20 02/27/24 08:34 Blood Pressure 133/68 02/27/24 08:34 Pulse Oximetry 100 02/27/24 08:34 Oxygen Delivery Method Room Air 02/27/24 08:34 Temperature 98.9 F 02/27/24 08:34 Pulse Rate 58 L 02/27/24 08:34 Respiratory Rate 20 02/27/24 08:34 Blood Pressure 133/68 02/27/24 08:34 Pulse Oximetry 100 02/27/24 08:34 Oxygen Delivery Method Room Air 02/27/24 08:34 MDM - Back Pain/Injury MDM Narrative Medical decision making narrative: CT of the lumbar spine shows a moderate to disc disease with central canal stenosis and the other lumbar radiculopathy Right now the patient is not presenting with any alarming symptoms she was feeling better after being treated with the Toradol and Norflex in the ER She also had x-ray of the sacral area showing no acute pathology I did explain to the patient right now since she have no alarming symptoms and the fact that the pain is getting better she will be discharged home with prednisone Pepcid as well as Voltaren and Flexeril But with instruction to monitor her symptoms in case of any worsening she is to come back to the ER she also have to follow-up with her primary care doctor for further evaluation with an MRI But also explained to the patient that in case of any worsening and explained to her the alarming symptoms that we will bring her back to the ER for urgent MRI Patient understands Patient also provided with the CAT scan results to take to her primary care The patient is to follow up with primary care physician in next 2-3 days or to return to the emergency department should any of the signs or symptoms worsen or new symptoms develop. The patient agrees with the following Diagnosis and Treatment plan and the patient will be discharged home. Discharge Plan Discharge Stand Alone Forms: Portal Instructions Chief Complaint: Back Pain/Injury Clinical Impression: Lumbar radiculopathy Patient Disposition: Home, Self-Care Time of Disposition Decision: 10:35 Condition: Good Prescriptions / Home Meds: New famotidine [Pepcid] 20 mg tablet 20 mg PO BID Qty: 10 0RF diclofenac sodium 75 mg tablet,delayed release (DR/EC) 75 mg PO BID PRN (Reason: pain) Qty: 14 0RF prednisone 50 mg tablet 50 mg PO DAILY 5 Days Qty: 5 0RF cyclobenzaprine 10 mg tablet 10 mg PO BID PRN (Reason: muscle spasm) Qty: 14 0RF No Action amlodipine 10 mg tablet 10 mg PO DAILY ergocalciferol (vitamin D2) 1,250 mcg (50,000 unit) capsule 50,000 unit PO .WEEKLY propranolol 20 mg tablet 20 mg PO Q12H clindamycin HCl 300 mg capsule 300 mg PO Q6H 10 Days Qty: 40 0RF clindamycin HCl 150 mg capsule 300 mg PO Q6H 10 Days Qty: 80 0RF hydroxyzine HCl 25 mg tablet 25 mg PO Q6H PRN (Reason: itching) Qty: 20 0RF methylprednisolone [Medrol (Srini)] 4 mg tablets,dose pack See Rx Instructions .ROUTE .COMPLEX Qty: 21 0RF Rx Instructions: Taper as directed famotidine [Pepcid] 20 mg tablet 20 mg PO BID Qty: 10 0RF ondansetron 4 mg tablet,disintegrating 4 mg PO Q6H PRN (Reason: nausea and vomiting) Qty: 12 0RF epinephrine [EpiPen] 0.3 mg/0.3 mL auto-injector 0.3 mg IM ONCE PRN (Reason: anaphylaxis) Qty: 2 0RF Print Language: Emirati Instructions: Lumbar Radiculopathy (ED), Back Pain (ED) Referrals: DARIAN PERERA [Primary Care Provider] - 1 week Discharge Date/Time: 02/27/24 10:58
== END 2024-02-27 10:58 | disposition home or self-care (01) ==
PROVIDERS: Emergency Provider Emergency Medicine; PCP Family Medicine
DX: M54.16 Radiculopathy, lumbar region (principal); Z87.891 Personal history of nicotine dependence
CPT/HCPCS: 72131; 72220; 96372; 99284; J1885; J2360